=== PATIENT | male | born 1985 | race Two or more races ===

== ENCOUNTER 2016-09-10 16:45 | Emergency (ER) | payer OTHER ==
--- NOTE | 2016-09-10 17:39 | RAD ---
Exam: Two-view left shoulder COMPARISON: None INDICATION: Left shoulder pain post ground-level fall. FINDINGS: AP and transscapular y views of the left shoulder were obtained and demonstrate an anterior shoulder dislocation. No displaced fracture is identified. Alignment is otherwise normal and visualized left hemithorax is within normal limits. IMPRESSION: Anterior shoulder dislocation.
[2016-09-10] MEDS ORDERED: HYDROMORPHONE HCL 1 MG/ML SYRINGE ONE (18:01)
[2016-09-10] MEDS ORDERED: ONDANSETRON 4 MG/2ML 2 ML VIAL ONE (18:01)
[2016-09-10] MEDS ORDERED: PROPOFOL 20 ML IV ONE (18:33)
[2016-09-10] MEDS ORDERED: KETAMINE HCL 50 MG/1 ML 10ML VIAL ONE (18:33)
[2016-09-10] MEDS ORDERED: SODIUM CHLORIDE 0.9% 500 ML ONE (18:36)
--- NOTE | 2016-09-10 19:57 | RAD ---
Exam: Two-view left shoulder COMPARISON: 09/10/2016 1710 hours INDICATION: Postreduction. FINDINGS: AP and transscapular y views of the left shoulder were obtained at 1842 hours. The humeral head now resides within the glenoid fossa. Hill-Sachs deformity is noted. No displaced fracture is seen. Visualized left hemithorax within normal limits. IMPRESSION: Anatomic alignment at the glenohumeral joint postreduction. Hill-Sachs deformity is noted but no displaced fracture is identified.
== END 2016-09-10 19:44 | disposition home or self-care (01) ==
LOC: ED 16:45
DX: S43.005A Unspecified dislocation of left shoulder joint, initial encounter (principal); W00.0XXA Fall on same level due to ice and snow, initial encounter; Y92.9 Unspecified place or not applicable
CPT/HCPCS: 73030 ×2; 96375 ×2; 99284; 23650 ×2; 96374; 99283; J1170; J2405; J7040